=== PATIENT | female | born 1975 | race Caucasian/White ===

== ENCOUNTER 2021-02-01 09:59 | Emergency (ER) | payer OTHER, SELFPAY ==
[2021-02-01 10:00] VITALS: BP 130/78; PULSE 89; RESP 15; TEMP 36.8; O2SAT 98; BMI 28.0
--- NOTE | 2021-02-01 10:11 | CT_ITS ---
STUDY: CTA CHEST/THORAX REASON FOR EXAM: Female, 45 years old. Chest and back pain RADIATION DOSAGE (If Supplied By Facility): CTDIvol = ( 9.99 ) mGy, DLP = ( 346.29 ) mGycm TECHNIQUE: The examination was performed with the intravenous administration of IV 100mL Isovue-370. Post-processing of the angiographic images was performed, with multiplanar reformation. No 3D reconstruction. Individualized dose optimization techniques were used for this CT. COMPARISON: None. FINDINGS: Normal enhancement of the main pulmonary artery and right and left pulmonary arteries. Normal enhancement of the bilateral peripheral pulmonary arteries. There is no demonstrated pulmonary embolism. Normal thoracic aorta and visualized great vessels. There is no demonstrated aortic dissection. Normal heart and pericardium. Normal mediastinum. Normal hilar regions. Normal visualized trachea and bronchi. The lungs are well expanded. Normal pulmonary parenchyma. Normal pleura. Normal chest wall structures. There are degenerative changes of the visualized spine. Well-defined 11.7 x 8 x 10.8 mm hypodensity in the left lobe of the liver is consistent with a cyst. CT/CTA Chest W/WO Contrast IMPRESSION: 1. Normal CTA chest examination, without a demonstrated pulmonary embolism or arterial dissection. 2. Incidental note of probable 11 mm left hepatic cyst as well as a multilevel [id number] degenerative changes of the spine. Electronically Signed: Ren Grimaldo MD at 11:28 EDT , Service support ,
--- NOTE | 2021-02-01 10:11 | EKG12_ITS ---
Test Reason : CP Blood Pressure : / mmHG Vent. Rate : 103 BPM Atrial Rate : 103 BPM P-R Int : 166 ms QRS Dur : 088 ms QT Int : 386 ms P-R-T Axes : 060 031 044 degrees QTc Int : 505 ms Sinus tachycardia Nonspecific ST abnormality Abnormal ECG Confirmed by ROSEMARIE MATHUR, REX ([id number]), digital editor CHELITA VAUGHAN ([id number]) on 02/02/2021 1:37:50 PM Referred By: TAMMY Confirmed By:REX HOUSTON MD
--- NOTE | 2021-02-01 10:13 | EX.ED.DYSGE1 ---
HPI History of Present Illness Chief Complaint: Chest Pain Detail of Chief Complaint: Is with back and chest pain intermittently for several months Informant: patient and spouse/S.O. Onset/Context/Timing Timing: Intermittent Current Severity: 3/10 Maximum Severity: Severe Narrative Narrative: Patient presents with a discomfort between her shoulder blades that started several months ago. Patient denies any trauma to her back. Patient states that normally she feels the discomfort more in the morning. She thinks maybe sometimes food seems to affected and feels like she needs to belch. When she does belch it seems to ease the pain but then it comes back. Patient states at times she will feel discomfort into her chest that is a dull ache. She had no nausea or vomiting. She denies diaphoresis. Pain is not exertional. Patient otherwise has no medical history. Patient states the pain was severe this morning around 5 AM but now is just mild and rates it a 3 out of 10. Patient denies any fever or recent illness. Prior similar symptoms: No PFSH PFSH Home Medications NK 02/01/21 [History Last Taken Unknown] cyclobenzaprine 10 mg PO TID PRN #20 tablet 02/01/21 [Rx Last Taken Unknown] hydrocodone-acetaminophen 1 tab PO Q4H PRN PRN 2 Days #10 tablet 02/01/21 [Rx Last Taken Unknown] lansoprazole [Prevacid SoluTab] 30 mg PO DAILY #14 tab 02/01/21 [Rx Last Taken Unknown] Allergy/AdvReac Type Severity Reaction Status Date / Time No Known Allergies Allergy Verified 02/01/21 10:00 Social History Smoking Status: Never smoker [facility] ED Constitutional Constitutional ED: Reports systems reviewed and no addt'l complaints, except as documented; Denies body ache(s), change in weight or chills Eyes Eyes: Denies acute decrease in peripheral vision, change in vision, double vision or loss of vision ENT ENT ED: Reports none; Denies ear pain, lip swelling, loss taste/smell, neck pain, otalgia or sore throat Cardiovascular Cardiovascular: Reports none and chest pain; Denies abdominal pain, chest pain with activity, leg edema, lightheadedness, palpitations, rapid heart rate or syncope Respiratory/Chest Respiratory/Chest: Reports none; Denies change in mental status, dry cough, dyspnea, hemoptysis, shortness of breath at rest or shortness of breath with exertion Gastrointestinal Gastrointestinal: Reports none; Denies abdominal pain, change in stool character, diarrhea, hematemesis, hematochezia, melena, rectal bleeding or vomiting Genitourinary Genitourinary ED: Reports none; Denies abdominal discomfort, anuria, dysuria, genital pain or polyuria Musculoskeletal Musculoskeletal: Reports none and back pain; Denies arthralgias, difficulty walking, extremity pain, muscle weakness or myalgias Integumentary Reports none; Denies abscess or rash Neurologic Neurologic: Reports none; Denies abnormal gait, confusion, focal weakness, frequent falls, headache(s), loss of vision, numbness, paresthesias, radicular pain, vertigo or weakness Psychiatric Psychiatric: Reports systems reviewed and no addt'l complaints, except as documented and none; Denies behavioral changes, confusion, difficulty concentrating, hallucinations, suicidal ideation, tactile hallucinations or visual hallucinations Endocrine Endocrinology: Denies none, cold intolerance, excessive sweating, fatigue or heat intolerance Hematologic/Lymphatic Hematologic/Lymphatic: Reports none; Denies anemia, easy bleeding or easy bruising Allergic/Immunologic Allergic/Immunologic ED: Denies as per HPI, none, lip swelling, mouth swelling, throat swelling, tongue swelling or hives EXAM Physical Exam Const Vital Signs: 02/01/21 10:00 02/01/21 10:15 Temperature 98.2 F Temperature Source Temporal Pulse Rate 89 Respiratory Rate 15 Blood Pressure 130/78 H Blood Pressure Mean 95 Pulse Ox 98 Oxygen Delivery Method Room Air Room Air Positive well nourished and well developed General Appearance ED: well developed and NAD HEENT Reports TM's clear and moist mucous membranes normocephalic and atraumatic; Negative for trauma or tenderness Tympanic Membrane ED: Yes TM's clear Eyes PERRL and EOMs intact bilaterally General Eye ED: Negative for pale conjunctiva or scleral icterus Neck no lymphadenopathy, supple and no JVD General: Negative for tenderness Chest Wall inspection of chest normal and palpation of chest normal Chest: Negative for tenderness Resp normal respiratory effort and clear to auscultation bilaterally Effort and Inspection: Negative for respiratory distress or pain with movement Auscultation: Negative for rhonchi, wheezes or diminished lung sounds Cardio regular rate, regular rhythm, S1 normal heart sound, S2 normal heart sound and no murmurs Peripheral Pulses: pulses 2+ throughout GI normal to inspection, nondistended, normoactive bowel sounds, soft to palpation, non-tender, non-distended and no masses Back/Spine no CVA tenderness and no thoracic nor lumbar tenderness Back/Spine Narrative: Evaluation of patient's back-I am unable to reproduce her pain with palpation of her back. There is no erythema or warmth. Extremity normal to inspection General Extremety ED: Negative for edema General Extremity: Negative for edema Neuro oriented x3, CN's II-XII intact bilaterally, no sensory deficits noted and gait normal Sensorium / Orientation: awake, alert, oriented to person, oriented to place and oriented to time Motor Exam: strength 5/5 throughout and strength abnormal Psych mental status grossly normal Skin no rashes or lesions noted and no wounds MDM MDM MDM Narrative Medical decision making narrative: Etiology of patient's pain is unclear. I suspect likely musculoskeletal etiology. I do not feel she is having acute coronary syndrome. CTA of her chest was unremarkable. Patient's heart score is a 2. While in department she did receive 4 mg of morphine and 4 mg of Zofran. Her abdominal exam is unremarkable and therefore I do not suspect gallbladder etiology for her pain. On CT scan of the chest she was noted to have degenerative changes of her spine. Patient will be given a prescription for [place] and Flexeril as well as Prevacid. Patient to follow-up with her primary care physician in 5 to 7 days. She is to return if worsening pain, increasing shortness of breath, or condition should worsen anyway. Lab Data Attestation: I reviewed the patient's lab results. Labs: Laboratory Results - last 24 hr 02/01/21 02/01/21 02/01/21 10:10 10:10 10:10 WBC 5.6 RBC 5.08 Hgb 14.0 Hct 45.6 MCV 89.8 MCH 27.6 MCHC 30.7 L RDW Std Deviation 53.1 H RDW Coeff of Maya 16.2 H Plt Count 270 MPV 11.1 Immature Gran % (Auto) 0.500 Neut % (Auto) 58.9 Lymph % (Auto) 26.4 Castro % (Auto) 10.6 H Eos % (Auto) 2.7 Baso % (Auto) 0.9 Absolute Neuts (auto) 3.3 Absolute Lymphs (auto) 1.47 Nucleated RBC % 0 Sodium 140 Potassium 3.5 Chloride 104 Carbon Dioxide 25.0 Anion Gap 11 BUN 10 Creatinine 0.64 Estim Creat Clear Calc 90.86 Est GFR (MDRD) Af Amer 129 Est GFR (MDRD) Non-Af 107 BUN/Creatinine Ratio 15.7 Glucose 133 H Calcium 9.8 Total Bilirubin 0.50 Direct Bilirubin 0.09 AST 13 L ALT 22 Alkaline Phosphatase 39 L Troponin I High Sens 4 Total Protein 7.7 Albumin 3.8 Globulin 3.9 Lipase 178 Radiography Diagnostic Testing: Radiology Impression Chest CTA 02/01/21 10:11 IMPRESSION: 1. Normal CTA chest examination, without a demonstrated pulmonary embolism or arterial dissection. 2. Incidental note of probable 11 mm left hepatic cyst as well as a multilevel [id number] degenerative changes of the spine. Electronically Signed: Ren Grimaldo MD at 11:28 EDT , Service support , EKG Initial EKG: Attestation: I personally reviewed and interpreted this EKG as follows: Comments: Sinus rhythm with a ventricular rate of [address] changes noted. Prior EKG tracings: not available for review Discharge Plan Triage Chief Complaint: Chest Pain ED Provider: Jack Willingham Dx/Rx/DC Orders Clinical Impression: Back pain, Chest pain Instructions: ED Chest Pain, Uncertain Cause, ED Back and Neck Pain, General Prescriptions: New cyclobenzaprine [cyclobenzaprine] 10 MG tablet 10 mg PO TID PRN (Reason: Muscle Spasm) Qty: 20 RF: 0 hydrocodone-acetaminophen [hydrocodone-acetaminophen] 1 TABLET tablet 1 tab PO Q4H PRN PRN (Reason: Pain) 2 Days Qty: 10 RF: 0 lansoprazole [Prevacid SoluTab] 30 mg tablet,disintegrat, delay rel 30 mg PO DAILY Qty: 14 RF: 0 No Action NK RF: 0 Primary Care Provider: Barry Cherry Referrals: Barry Cherry DO [Primary Care Provider] - 3-5 Days Disposition Disposition: Home, Self Care
[2021-02-01 10:21] LABS: Absolute Lymphocyte Count 1.47 X10^3/uL (0.83-4.51); Absolute Neutrophil Count 3.3 X10^3/uL (2.0-7.7); Basophil# 0.05 X10^3/uL; Basophil% 0.9 % (0-1); Eosinophil# 0.15 X10^3/uL; Eosinophils% 2.7 % (0-5); Hematocrit 45.6 % (37-47); Lymphocyte # 1.47 X10^3/ul (0.83-4.51); Lymphocyte % 26.4 % (19-41); Mean Corp Hgb Conc 30.7 g/dL (32-36); Mean Corpuscular Hgb 27.6 pg (27.0-32.0); Mean Corpuscular Volume 89.8 fL (81-99); Mean Platelet Vol. 11.1 fl (6.2-12.0); Monocyte# 0.59 X10^3/uL; Monocyte% 10.6 % (0-10); NRBC Flagged by Analyzer 0 % (0-5); Neutrophil # 3.28 X10^3/uL (2.7-7.7); Neutrophil % 58.9 % (47-70); Platelet Count 270 K/mm3 (150-450); RBC Distribution Width CV 16.2 % (11.6-14.6); RBC Distribution Width SD 53.1 fl (35.1-43.9); Red Blood Count 5.08 M/mm3 (4.2-5.4); White Blood Count 5.6 K/mm3 (4.4-11.0)
[2021-02-01] MEDS: 0.9% Normal Saline 1,000 ML 150 ML IV (10:28)
[2021-02-01] MEDS: Aspirin 81 MG TAB.CHEW 324 MG PO (10:28)
[2021-02-01 10:39] LABS: Anion Gap 11 (5-15); BUN 10 mg/dL (7-18); BUN/Creat Ratio 15.7 RATIO (10-20); Calcium,Total 9.8 mg/dL (8.5-10.1); Chloride 104 mmol/L (98-107); Creatinine, Serum 0.64 mg/dL (0.55-1.02); EST Glomerular Filtration Rate 107 mL/min (>60); Est Glom Filt Rate - Afr Amer 129 mL/min (>60); Estimated Creatinine Clearance 90.86 ml/min; Glucose 133 mg/dL (74-106); Lipase 178 U/L (73-393); Potassium 3.5 mmol/L (3.5-5.1); Sodium Level 140 mmol/L (136-145); Troponin-I HS 4 pg/mL (3.0-54.0)
[2021-02-01 10:42] LABS: AST(SGOT) 13 U/L (15-37); Alanine Aminotransfer ALT/SGPT 22 U/L (13-56); Albumin, Serum 3.8 g/dL (3.2-5.0); Alkaline Phosphatase 39 U/L (45-117); Bilirubin, Direct 0.09 mg/dL (0.00-0.30); Globulin 3.9 g/dL (2.2-4.2); Protein, Total 7.7 g/dL (6.4-8.2)
[2021-02-01] MEDS: Morphine 4 MG/ML Syringe IV (12:02)
[2021-02-01] MEDS: Ondansetron 4 MG/2 ML Vial IV (12:02)
[2021-02-01 13:05] VITALS: BP 106/55; PULSE 74; RESP 20; O2SAT 99
== END 2021-02-01 13:14 | disposition home or self-care (01) ==
PROVIDERS: Emergency Provider Emergency Medicine; PCP Family Medicine
DX: M54.9 Dorsalgia, unspecified (principal); R07.9 Chest pain, unspecified
CPT/HCPCS: 71275; 80048; 80076; 83690; 84484; 85025; 93005; 96374; 96375; 99284; J7030; Q9967; A4216; J2405

== ENCOUNTER → 2021-04-14 11:45 | Outpatient (CLI) | payer OTHER, SELFPAY | PROVIDERS: PCP Family Medicine; Visit Provider Obstetrics & Gynecology | DX: Z03.818 Encounter for observation for suspected exposure to other biological agents ruled out (principal) | CPT/HCPCS: 87635; U0005; U0003 ==

== ENCOUNTER 2021-04-23 05:36 | Inpatient (IN) | payer SELFPAY, OTHER ==
--- NOTE | 2021-04-22 | HYST_PTH ---
PATIENT: JASON HAIDER LOC: [facility] U#:[id number] AGE/SX: 45/F ROOM: [facility]314 RE04/23/[address]: Dr. Nicholas Le MD : 1975 BED: 1 DIS: 04/24/2021 SPEC #: [id number] RECD: 04/23/21 10:41 STATUS: MEL REJulia #: [id number] AMA: 04/22/21 00:[address]: Nicholas Le DEPT: SURGICAL PATHOLOGY RECD BY: Ean Strickland ENTERED: 04/23/21 10:42 SP TYPE: HYSTERECT OTHR DR: Dr. Barry Cherry DO Tissues: Uterus, NOS Procedures: Surgery Specimen Level V HEADER OPERATION: ERAS, hysterectomy, ALMA, salpingectomy PRE-OP DIAGNOSIS: Leiomyoma of uterus TISSUE SUBMITTED: Uterus, cervix, bilateral fallopian tubes and left ovary MICROSCOPIC DIAGNOSIS Uterus, cervix, bilateral fallopian tubes and left ovary, hysterectomy, bilateral salpingectomy and left oophorectomy: Cervix ? mild chronic cystic cervicitis. Endometrium ? secretory endometrium. Myometrium ? intramural leiomyoma (9 cm in diameter). - Focal adenomyosis. Left ovary ? endometriosis. - Hemorrhagic corpus luteal and follicular cysts. Bilateral fallopian tubes, fimbrial ends - no pathologic diagnosis. Portion of detached fallopian tube ? focal minimal endometriosis. Attached portion of fallopian tube ? focal mild chronic inflammation. SJ:kristin 04/24/2021 MICROSCOPIC DESCRIPTION Slides are reviewed. GROSS DESCRIPTION Received in fixative is one container labeled with the patient's name and designated uterus, cervix, bilateral fallopian tubes and left ovary. The specimen consists of a hysterectomy specimen consisting of uterus, detached cervix, detached ovary identified as left and detached pieces of fallopian tube (two pieces consisting of fimbrial ends and the third piece consists of portion of fallopian tube). The uterus with cervix weighs 940 gm and is markedly distorted. The cervix measures 4 x 3.5 x 2.5 cm. The ectocervical mucosa is unremarkable. The external os is oval in contour. The uterus measures 18 x 14 x 10 cm. A portion of fallopian tube is attached to the uterus is also noted. The serosal surface is huerta, glistening. The uterus is markedly distorted. The endometrial cavity is compressed to one side and measures 5 x 4.5 cm. The endometrium is huerta, glistening without any mass lesion and measures up to 0.3 cm in thickness. Sections of the uterine wall reveal a large nodular mass measuring 9 cm in diameter. Sections of this mass reveals huerta whorled cut surfaces without areas of hemorrhage, necrosis or cystic degeneration. The uninvolved uterine wall measures up to 4 cm in thickness. The left ovary measures 3.5 x 2 x 1 cm. Sections of the ovary reveals a few cysts filled with hemorrhagic fluid. The detached bilateral fimbrial ends measures 1.5 x 1.5 x 1 cm and 2 x 1.5 x 1 cm. The detached piece of fallopian tube measures 1.5 cm in length and 0.5 cm in diameter. Sections reveal dilated lumen filled with hemorrhagic material. The attached portion of fallopian tube measures 3.5 cm in length and 0.5 cm in diameter. Pattern Cutter sections are submitted in 16 cassettes as follows: 1 & 2 - cervix, 3-6 - uterine wall, 7-9 - nodular mass, 10-12 - ovary and adherent fallopian tube, 13 - fimbrial end one fallopian tube, 14 - fimbrial end second fallopian tube, 15??detached fallopian tube, Fimbrial ends and portion of detached fallopian tube are submitted in entirety 16 - attached fallopian tube. . / JESS:kristin 04/23/21 TC:1 CPT: 79299
[2021-04-23] VITALS (17 sets, daily range): BP systolic 98–127; BP diastolic 48–80; PULSE 61–98; RESP 12–20; TEMP 36.1–37.4; O2SAT 95–98; BMI 27.7
[2021-04-23 06:06] LABS: Bedside Glucose 182 mg/dL (70-110)
[2021-04-23 06:10] LABS: Internal QC Validated? YES +Cl - CLEAR BKGD; Pregnancy, Urine Negative Negative
[2021-04-23] MEDS: Insulin Lispro 100 UNIT/ML INSULN.PEN SC (06:35)
[2021-04-23] MEDS: Acetaminophen 500 MG Tablet 1000 MG PO ×3 (06:37→20:40)
[2021-04-23] MEDS: dexAMETHasone 10 MG/ML Vial 8 MG IV (06:38)
[2021-04-23] MEDS: Celecoxib 200 MG Capsule 400 MG PO (06:38)
[2021-04-23] MEDS: Gabapentin 600 MG Tablet PO (06:38)
[2021-04-23] MEDS: Lactated Ringers 1,000 ML 40 ML IV (06:38)
[2021-04-23 06:42] LABS: Hematocrit 41.8 % (37-47); Hemoglobin 13.5 g/dL (12.0-15.0); Mean Corp Hgb Conc 32.3 g/dL (32-36); Mean Corpuscular Hgb 27.9 pg (27.0-32.0); Mean Corpuscular Volume 86.4 fL (81-99); Mean Platelet Vol. 11.4 fl (6.2-12.0); Platelet Count 244 K/mm3 (150-450); RBC Distribution Width CV 14.6 % (11.6-14.6); RBC Distribution Width SD 46.5 fl (35.1-43.9); Red Blood Count 4.84 M/mm3 (4.2-5.4)
--- NOTE | 2021-04-23 06:51 | HP.PCM.OB_ITS ---
History and Physical Date of Admission: 04/23/21 Surgical History and Physical Date: 04/23/2021 Name: JASON MARES Age: 45 Date of : 1975 Jason Mares, a 45 year old female 7 0 1 0 7, presents for Total abdominal hysterectomy, bilateral salpingectomy on April 23, 2021 at 7:30. -- Jason is here for hysterectomy for fibroids. All questions answered and consent signed. MEDICATIONS HISTORY: Patient is also takin. No Meds ALLERGIES: No Known Allergies Infections - NONE Illnesses - none Hospitalizations - None Review of Systems: GENERAL - Denies fever, or chills SKIN - Denies skin changes EYES - Denies visual changes EARS - Denies difficulty hearing NOSE - Denies nasal congestion or bleeding MOUTH - Denies sore throat or difficulty swallowing NECK - Denies pain or swelling RESPIRATORY - Denies shortness of breath or wheezing CARDIOVASCULAR - Denies palpitations or chest pain GASTROINTESTINAL - Denies nausea, vomiting, diarrhea, constipation GENITOURINARY - Denies dysuria, frequency of urination, incontinence of urine MUSCULOSKELETAL - Denies joint or muscle pain NEUROLOGICAL - Denies localized numbness or weakness PSYCHIATRIC - Denies depression or anxiety ENDOCRINE - Denies heat or cold intolerance, weight loss or gain HEMATO-IMMUNOLOGIC - Denies excessive bleeding with cuts SOCIAL HISTORY: Alcohol Use - denies drinking Smoking - denies smoking Diet - no special diet Lifestyle - active lifestyle Exercise - every day work Seat Belt Use - always Employer - house Illicit Drug Use - denies use of street drugs Sexual Activity - Residence - owns a home Place of - [place] Spouse-Sig Other Name - Feliberto Spouse-Sig Other Occupation - self employed Children Name(s) - 7 Control - NONE FAMILY HISTORY: MENSTRUAL HISTORY: LMP Known?- DefiniteAmount/Duration - 5 days, Regularity - Regular, LMP - 03/16/21, Age Onset Menarche - 12 PAST PREGNANCIES: Total Pregnancies - 8; Full Term Pregnancies - 7; Premature - 0; Abortions, Induced - 0; Abortions, Spontaneous - 1; Ectopics - 0; Multiple Births - 0; Living Children - 7 PHYSICAL EXAM BP- 122/72 Sitting, Right arm, regular cuff Weight- 159.07139 lbs Height- 61 inch BMI:[id number] CONSTITUTIONAL - NAD, well nourished, and well developed SKIN - No rash, lesions, or ulcers HEENT - Normocephalic, PERRLA, EOMI NECK - No nodes, no nuchal rigidity and thyroid normal size and texture ABDOMEN - Without hepatosplenomegaly, distention, masses, rebound, or guarding; normal bowel sounds; no hernias EXTREMITIES - No edema or calf tenderness NEUROLOGICAL - Cranial nerves II-XII grossly intact PSYCHIATRIC - A and O to time, place, person, mood and affect External Genital Vagina - non-tender without lesions Urethra/Urethral Meatus - non-tender Bladder - non-tender Vagina - vaginal alcazar are pink and moist without loss of rugae and no evidence of atrophy Cervix - without cervical motion tenderness and has normal size and features without evident lesions Uterus - 20 cm in size at umbilicus, mobile and nontender. Palpable fibroid 10- 12cm lower uterine segment and fundus Adnexa - clear without masses or tenderness ASSESSMENT/PLAN: 1. Leiomyoma Of Uterus, Unspecified Patient with pelvic pressure and pain The patient was educated on leiomyomas including risk for malignancy. Educated patient on findings and discussed surgery. Risk benefits alternatives discussed, patient states understanding 2. Encounter For Other Preprocedural Examination Scheduled for total abdominal hysterectomy bilateral salpingectomy for leiomyomas Risk benefits alternatives discussed, discussed large incision and its recovery burden and complications. Patient stated understanding wish to proceed. On no medications. For surgery. Covid testing obtained Follow-up 2 weeks postoperatively .
[2021-04-23 07:07] LABS: Magnesium 2.2 mg/dL (1.6-2.6)
[2021-04-23] MEDS: Cefazolin 2 GM in 0.9% Normal Saline 100 ML IV (07:45)
[2021-04-23] MEDS: Ondansetron 4 MG/2 ML Vial IV (09:46)
[2021-04-23] MEDS: Lactated Ringers 1,000 ML 70 ML IV ×2 (10:02→17:24)
--- NOTE | 2021-04-23 10:07 | PCM.OPRPT ---
Report of Operation Date of Procedure: 04/23/21 Pre-Operative Diagnosis: Leiomyomas, pelvic pain Post-Operative Diagnosis: Leiomyomas, pelvic pain Surgery/Procedure Performed:: Total abdominal hysterectomy, bilateral salpingectomy, left oophorectomy Description of Surgical Findings:: Surgeon: Nicholas Le MD Anesthesia: General EBL: 70 cc Urine output: 300 cc IV fluid: 1500 cc Complications: None Specimen: Uterus, cervix, bilateral fallopian tubes, left ovary Findings: Leiomyoma uterus, just above umbilicus. Anterior fundal 12 to 15 cm fibroid. Left posterior fibroid 8 cm. Left ovary severely adhesed within the left fibroid, unable to safely dissect and required left oophorectomy. Overall bilateral fallopian tubes and ovaries within normal limits. No other pathology noted. Consent: Patient with leiomyomas in need of total abdominal hysterectomy bilateral salpingectomy. Patient understands the risk of the procedure include but are not limited to visceral or vascular injury, prolonged hospitalization, blood loss and need for transfusion, reoperation. Patient understands risk of oophorectomy. Patient states understanding and wishes to proceed. All questions were answered and consent was signed. Procedure: Patient was brought back to the OR where general anesthesia was found to be adequate. 2 g of Ancef were given for infection prophylaxis. Patient was prepared and draped in a supine position. Maylard incision was made at the skin with a scalpel. The incision was carried down to the fascia with a scalpel. The fascia was excised and extended laterally. Right rectus muscle was deviated to the midline and inferior epigastric was visualized and dissected clamped cut and suture-ligated x2, good hemostasis was noted. In a similar fashion the left rectus muscle was deviated to the midline and the inferior epigastrics were identified, dissected, clamped cut and suture-ligated x2, good hemostasis was noted. Rectus muscle was transected with the Bovie, good hemostasis was noted. Peritoneum was entered sharply and dissected laterally. Matt retractor was inserted. Uterus was exteriorized and above findings were noted. Alejandra clamps were placed at the cornua. Right round ligament was suture ligated cut and anterior and posterior portions of the broad ligament were dissected, right ureter was visualized and out of the operative field. Bladder flap was developed. Right fallopian tube was identified and the mesosalpinx was cut and cauterized with LigaSure device, sent to pathology. Right utero-ovarian ligament was cut and cauterized with LigaSure device. Right uterine vessels were skeletonized cut and cauterized with LigaSure device, lateralized beyond the operative field. Left round ligament was suture-ligated cut and anterior and posterior portions of broad ligament were dissected, left ureter was visualized and out of the operative field. Left fallopian tube was identified and mesosalpinx was cut and cauterized with a LigaSure device, sent to pathology. As noted above left ovary was severely adhesed to uterus and leiomyoma, left ovary was attempted to be dissect from uterine leiomyoma but unable to safely dissect left ovary, IP ligament was identified ureter was again visualized on left side and the IP ligament was cut and cauterized with LigaSure device. Good hemostasis was noted. Bladder flap was further developed out of the operative field and beyond the level of the cervix. Left uterine vessels were skeletonized and cut and cauterized with LigaSure device, lateralized beyond the level of the operative field. Uterus was transected below the level of the leiomyomas, fibroid uterus sent to pathology. Bertha clamps were placed on the cervical stump. Bladder was confirmed beyond the level of the cervix. Right ankle zeppelins were placed just below the cervix and Kuwlinder scissors were used to form the colpotomy above the Zeppelin clamps. Vamshi transfixation stitches were placed bilaterally at the site of the right ankle zeppelins. Good hemostasis was noted. Anterior and posterior portions of the colpotomy were closed with [id number] suture. Good hemostasis was noted. Operative field was reinspected and good hemostasis was noted at all pedicles. Matt retractor was removed. Fascia was closed with double-stranded looped PDS in a continuous running fashion. Skin was closed in a subcuticular fashion. All counts were correct x2. Patient tolerated the procedure well and was brought to recovery in stable condition. outboard motor assembler: Yamile Le
[2021-04-23 10:16] LABS: Bedside Glucose 145 mg/dL (70-110)
--- NOTE | 2021-04-23 10:19 | SUR.PHASEI ---
PATIENT IS NOT MEASURING AN ACCURATE ETCO2 D/T CONTINUOUS MOUTH BREATHING.
--- NOTE | 2021-04-23 12:21 | SUR.PHASEI ---
PATIENT MONITORED ON ERAS NASAL CANNUAL FOR PACU STAY. WILL CONT TO MONITOR. VSS.
--- NOTE | 2021-04-23 12:23 | SUR.PHASEI ---
TRANSFERRED TO PHASE 2 WHILE AWAITING A ROOM IN HOUSE.
[2021-04-23] MEDS: Ketorolac 30 MG/ML Syringe IV ×2 (12:55→18:50)
--- NOTE | 2021-04-23 14:58 | PCS.PANDOC ---
PANDEMIC DOCUMENTATION INITIATED: Date: 01/05/2021 Time: 190
[2021-04-23] MEDS: 0.9% Saline Lock 10 ML Syringe IV (15:13)
[2021-04-23] MEDS: Docusate Sodium 100 MG Capsule PO (20:39)
[2021-04-24] MEDS: Ketorolac 30 MG/ML Syringe IV ×3 (00:28→11:49)
[2021-04-24 00:31] VITALS: BP 114/60; PULSE 72; RESP 18; TEMP 37.2; O2SAT 99
[2021-04-24] MEDS: Acetaminophen 500 MG Tablet 1000 MG PO ×2 (02:35→07:35)
[2021-04-24] MEDS: oxyCODONE 5 MG Tablet PO (06:04)
[2021-04-24] MEDS: Lactated Ringers 1,000 ML 70 ML IV (06:04)
[2021-04-24 06:35] LABS: Hematocrit 35.9 % (37-47); Hemoglobin 11.4 g/dL (12.0-15.0); Mean Corp Hgb Conc 31.8 g/dL (32-36); Mean Corpuscular Hgb 28.1 pg (27.0-32.0); Mean Corpuscular Volume 88.4 fL (81-99); Mean Platelet Vol. 11.5 fl (6.2-12.0); Platelet Count 232 K/mm3 (150-450); RBC Distribution Width CV 14.9 % (11.6-14.6); RBC Distribution Width SD 48.6 fl (35.1-43.9); Red Blood Count 4.06 M/mm3 (4.2-5.4); White Blood Count 11.7 K/mm3 (4.4-11.0)
[2021-04-24 07:30] VITALS: BP 98/49; PULSE 84; RESP 16; TEMP 36.8; O2SAT 96
[2021-04-24] MEDS: Enoxaparin 40 MG/0.4 ML Syringe SC (07:34)
[2021-04-24] MEDS: Docusate Sodium 100 MG Capsule PO (07:34)
--- NOTE | 2021-04-24 08:33 | PCM.DC ---
Discharge Instructions Diet Discharge Diet: No restrictions Activity Discharge Activity: Return to Normal Activity, May Drive, May Shower and - (no tub baths for 2 weeks) May resume sexual activity in: 4-6 weeks Lifting Restrictions: No lifting over 25 pounds for 2 to 3 weeks Dressing / Incision Call your doctor if your incision/area has: Continuous Slow Oozing and Foul Smelling Discharge Call your doctor if you observe: Fever of 101 or Higher, Shortness of breath and Chest pain Follow Up Care Please Follow Up With: Nicholas Le MD When: 2 weeks postoperatively Test Results: Test results from this visit will be discussed in further detail at your follow-up appointment, if applicable. Discharge Plan Admission Admit Date/Time: 04/23/21 05:36 Primary Reason for Your Visit: Hysterectomy Attending Provider: Nicholas Le Primary Care Provider: Barry Cherry Discharge Orders/Prescriptions Prescriptions: New oxycodone 5 mg Tablet 5 mg PO Q6H PRN PRN (Reason: Pain Score 6-10) 5 Days Qty: 20 RF: 0 Referrals / Follow Up: Barry Cherry DO [Primary Care Provider] - Disposition Discharge Orders: Discharge Patient (Routine); Ordered 04/24/21 Ordered By: Dr. Nicholas Le
--- NOTE | 2021-04-24 08:34 | PN.OBGYN_ITS ---
Subjective Subjective No overnight complaints. Pain well controlled. Up to chair, tolerating regular diet Objective Data Objective Data Vital Signs: Vital Signs Temp Pulse Resp BP Pulse Ox 98.2 F 84 16 98/49 L 96 04/24/21 07:30 04/24/21 07:30 04/24/21 07:30 04/24/21 07:30 04/24/21 07:30 Oxygen Flow Rate (L/min) 4 Oxygen Delivery Method Room Air Weight: 156 lb 8.451 oz Body Mass Index (BMI) 27.7 Intake & Output: Intake and Output for Last 24 Hours 04/22/21 04/23/21 04/24/21 23:59 23:59 23:59 Intake Total 2030.17 / 2030.17 886.67 / 886.67 Output Total 1075 / 2895 2470 / 2470 Balance 955.17 / -864.83 -1583.33 / -1583.33 Lab / Micro Data Result Diagrams: 04/24/21 05:40 Labs: Laboratory Results - last 24 hr 04/23/21 10:10: POC Glucose 145 H 04/24/21 05:40: WBC 11.7 H, RBC 4.06 L, Hgb 11.4 L, Hct 35.9 L, MCV 88.4, MCH 28.1, MCHC 31.8 L, RDW Std Deviation 48.6 H, RDW Coeff of Maya 14.9 H, Plt Count 232, MPV 11.5 Micro: Microbiology 04/23/21 05:45 Interface Orders SARS-CoV-2 Antigen (Rapid) - Final Physical Exam Const alert, oriented x3, no apparent distress, average body habitus, healthy appearing and well nourished Exam Limitations: no limitations HEENT normocephalic and moist oral mucous membranes Head and Scalp: atraumatic Face and Sinus: normal facial exam Neck full ROM Resp normal respiratory effort, no retractions and no use of accessory muscles GI normal to inspection, nondistended, normoactive bowel sounds GI Narrative: Bandage clean dry and intact Extremity normal to inspection, full ROM and no clubbing, cyanosis or edema Psych mental status grossly normal, affect normal, speech normal and activity/motor behavior normal Assessment & Plan (1) Acute postoperative pain: PLAN: Postop day 1 status post total abdominal hysterectomy bilateral s alpingectomy left oophorectomy. Pain well controlled. Tolerating regular diet. Remove Escobedo catheter today. To ambulate today. Can discharge home today as long as she can ambulate and void spontaneously
--- NOTE | 2021-04-24 09:52 | CASEMGMT ---
STEPHON GARCIA Assessment: Face to Face with pt for initial transition planning/care coordination assessment. RN RADHA introduced self and role at [facility], pt voices understanding and consents to assessment. Pt is A/O x4 and answers all questions appropriately at this time. Pt sitting up in chair with at bedside. Pt in no distress. Care providers, pharmacy, and demographics verified/updated. Admitting Dx: juliano MARQUEZ PCP: Dilip Specialists: Rey CONSERVATION ASSISTANT Preferred Pharmacy: [facility] Retail Insurance: [facility] Package Plan, [employer] Prescription Benefit: no LW/HPOA: Pt states she has a LW/DPOA and she thinks her DPOA is one of her brother in laws but she is not sure. Pt is aware that this is not on file at [facility] and she may bring in to be scanned into the chart. LNOK: Feliberto Mares, Living Arrangements: Pt lives with and 7 children in a two story house with 4 steps to enter without a rail. Pt reports she is I in ADL's and denies concerns at home. Transportation: Pt hires drivers for transportation. Denies concerns with transportation. DME/HHC/SNF: Pt denies having any DME in the home, hx of HHC or SNF stays. Pt states no concerns with going home at time of dc. Pt states no further concerns/needs. CM to follow. Advised pt to ask CM if any further question/concerns/needs arise, voices understanding. Pt Goal: Home Plan: Home
--- NOTE | 2021-04-24 10:28 | PHA.DC.MC ---
Pharmacy Service has performed discharge medication reconciliation and counseling for this patient. The patient was counseled on the following discharge medications and changes in medications for homegoing were reviewed. 1. OXYCODONE The Reason for Use, instructions for use, and potential side effects were reviewed for all new medications. The patient's questions regarding all of their medications were answered. The patient was able to verbally demonstrate an understanding of their discharge medications. Home Medications oxycodone 5 mg PO Q6H PRN PRN 5 Days #20 tab 04/24/21 The patient's discharge medication list was reviewed for discrepancies and discrepancies were resolved.
[2021-04-24 15:00] VITALS: BP 116/54; PULSE 82; RESP 16; TEMP 37; O2SAT 96
== END 2021-04-24 15:34 | disposition home or self-care (01) | DRG 743 ==
LOC: ACINP 05:40 → MS3 15:56
PROVIDERS: Anesthesiology; Admitting Provider Obstetrics & Gynecology; PCP Family Medicine; Referring Provider Obstetrics & Gynecology; Visit Provider Obstetrics & Gynecology
PROC: 0UT90ZZ Resection of Uterus, Open Approach (ICD-10-PCS; CPT 58150; principal; 2021-04-23 07:10)
DX: D25.9 Leiomyoma of uterus, unspecified (principal)
CPT/HCPCS: 36415; 81025; 82962; 83735; 85027; 86850; 86900; 86901; 87426; 88307; 99251; J7120; A4216; G0463; J2405

== ENCOUNTER 2021-05-27 08:13 | Outpatient (CLI) | payer OTHER, SELFPAY ==
--- NOTE | 2021-05-27 08:19 | VDLE_ITS ---
Reason For Study: LLE pain Procedure LEFT This is a venous duplex using B-mode, color GSV is normal. flow and spectral Doppler. CFV is compressible, spontaneous, phasic, Exam performed in department. competent, and demonstrates normal A preliminary report was called and/or faxed augmentation. to Jana Urbina [employer] [phone] @ 8:45 am. FV is compressible, spontaneous, phasic, competent and demonstrates normal augmentation. POP V is compressible, spontaneous, phasic, competent and demonstrates normal augmentation. T/P Trunk is compressible. PTV is compressible. LT PerV is compressible. VL/Venous Duplex US, Unilateral Interpretation Summary There is no evidence of left lower extremity deep vein thrombosis. Left great s aphenous vein appears patent and compressible segmentally. Ordering Physician: Jana Urbina Referring Physician: Jana Urbina Performed By: Mila Sams, DILIP, RVT
== END 2021-05-27 23:59 | disposition short-term general hospital (02) ==
PROVIDERS: PCP Family Medicine; Referring Provider Nurse Practitioner Family; Visit Provider Nurse Practitioner Family
DX: M79.662 Pain in left lower leg (principal)
CPT/HCPCS: 93971